=== PATIENT | male | born 1970 | race Hispanic/Latino ===

== ENCOUNTER 2024-11-08 17:26 | Emergency (ER) | payer BC, SELFPAY ==
[2024-11-08 17:28] VITALS: BP 149/63; PULSE 62; RESP 18; TEMP 35.9; O2SAT 99; BMI 29.8
--- NOTE | 2024-11-08 17:39 | EX.ED.UPPERE ---
HPI History of Present Illness Chief Complaint: Upper Extremity Injury Informant: patient Narrative Narrative: 54-year-old male presenting to the emergency room with left ring finger injury. Patient states that toolbox lid came down and struck his finger on the nail. He notes deformity to the nail itself and pain. He denies any other injuries. PFSH PFSH Home Medications ?Medication ?Instructions ?Recorded ?Last Taken ?Type cephalexin 500 mg capsule 500 mg PO Q6 #20 CAPSULES 11/08/24 Unknown Rx oxycodone-acetaminophen 5 mg-325 1 tab PO Q6H PRN pain 3 days #12 11/08/24 Unknown Rx mg tablet (Percocet) tabs Allergy/AdvReac Type Severity Reaction Status Date / Time No Known Allergies Allergy Verified 11/08/24 17:27 Social History Smoking Status: Never smoker ROS ROS ED Constitutional Constitutional ED: Denies chills or weight loss Eyes Eyes: Denies change in vision or diplopia ENT ENT ED: Denies ear pain, rhinorrhea or sore throat Cardiovascular Cardiovascular: Denies chest pain, orthopnea, palpitations or racing heartbeat Respiratory/Chest Respiratory/Chest: Denies cough, dyspnea or orthopnea Gastrointestinal Gastrointestinal: Denies abdominal pain, diarrhea, nausea or vomiting Genitourinary Genitourinary ED: Denies dysuria, hematuria or urinary frequency Musculoskeletal Musculoskeletal: Reports other Details: See history of present illness ; Denies arthralgias or myalgias Integumentary Denies abscess or rash Neurologic Neurologic: Denies headache(s) or weakness Psychiatric Psychiatric: Denies anxiety, depression, suicidal ideation or suicidal thoughts Endocrine Endocrinology: Denies polydipsia, polyphagia or polyuria Allergic/Immunologic Allergic/Immunologic ED: Denies mouth swelling, tongue swelling or urticaria EXAM Physical Exam Const Vital Signs: 11/08/24 17:28 Temperature 96.7 F L Temperature Source Temporal Pulse Rate 62 Respiratory Rate 18 Blood Pressure 149/63 H Blood Pressure Mean 91 Pulse Ox 99 Oxygen Delivery Method Room Air Positive well nourished and well developed General Appearance ED: well developed HEENT Reports normocephalic, head/scalp atraumatic and moist mucous membranes Eyes PERRL and EOMs intact bilaterally Neck no lymphadenopathy, supple and no JVD Resp normal respiratory effort and clear to auscultation bilaterally Cardio regular rate, regular rhythm and no murmurs GI normal to inspection, nondistended, normoactive bowel sounds and non-tender Palpation: soft Back/Spine no CVA tenderness and normal ROM Extremity Extremity Narrative: Left ring finger. There is a proximal third injury to the nail where the distal and is flattened forming more of a [place] deformity of the nail itself. The volar's fat pad shows ecchymosis extending onto the distal tip. There is some subungual hematoma noted up about 40%. There are some's mild swelling and erythema just proximal to the nail. Sensation preserved. General Extremety ED: Negative for edema General Extremity: Negative for edema Neuro oriented x3 and CN's II-XII intact bilaterally Sensorium / Orientation: alert Motor Exam: strength 5/5 throughout Psych mental status grossly normal Mood & Affect: Negative for depressed or tearful Skin no rashes or lesions noted and no wounds MDM MDM MDM Narrative Medical decision making narrative: Differential diagnosis includes but not limited to tuft fracture and nailbed injury subungual hematoma neurovascular injury tendon injury My independent interpretation of the plain films of the left index finger there is a comminuted displaced distal phalanx fracture. Patient underwent digital block using the single volar approach after cleansing the skin 1% lidocaine instilled. After adequate anesthesia was obtained the fracture was reduced by recreating the injury with traction. My independent interpretation of the plain films post reduction is improved alignment of fracture fragments. The subungual hematoma had grown to about 80% by the time the nerve block was performed. A trephination was performed which removed the subungual hematoma down to about 30%. The fingernail itself felt stable proximally. Therefore it was not removed. Patient was placed in aluminum foam splint. Patient will follow-up with plastic surgery. I will write for pain medication as well as some Keflex. Local wound care discussed with patient notes understanding. Discharge Plan Triage Chief Complaint: Upper Extremity Injury Other Complaint: Wound ED Provider: Robert Barksdale Dx/Rx/DC Orders Clinical Impression: Closed fracture of tuft of distal phalanx of finger, Subungual hematoma Instructions: ED Crush Injury, Hand, ED Fracture, Finger, Closed, ED Subungual Hematoma Prescriptions: New oxycodone-acetaminophen [Percocet] 5-325 mg tablet 1 tab PO Q6H PRN (Reason: pain) 3 Days Qty: 12 0RF cephalexin 500 mg capsule 500 mg PO Q6 Qty: 20 0RF Primary Care Provider: Care Physician,No Primary Referrals: Janak Valentine MD [Med Staff - Active Staff] - As soon as possible (for hand surgery) NOT,DEFINED [Non-Staff] - Print Language: Qatari Disposition Disposition: Home, Self Care Discharge Date/Time: 11/08/24 19:08
--- NOTE | 2024-11-08 17:40 | RAD_ITS ---
PROCEDURE: FINGER(S) MIN 2 VIEWS 11/08/2024 REASON FOR EXAM: INJURY TECHNIQUE: 3 view(s) of the left finger COMPARISON: None FINDINGS: Moderately comminuted fracture distal aspect of the distal phalanx 4th finger. There is dorsal angulation of the distal fracture fragment. Small laceration with soft tissue swelling is noted. No radiopaque foreign body. RAD/Finger(s) Min 2 Views IMPRESSION: See above Reading Location: [facility]
[2024-11-08] MEDS: Cephalexin 250 MG Capsule 500 MG PO (17:56)
[2024-11-08] MEDS: Lidocaine 1% (20 ml mdv) 20 ML Vial INFILT (17:56)
--- NOTE | 2024-11-08 18:01 | ED.RN ---
left 4th finger. top view 2nd top view 4th left finger side view left 4th finger 2nd side view of the 4th left finger left fourth finger, finger tip
--- NOTE | 2024-11-08 18:45 | RAD_ITS ---
PROCEDURE: FINGER(S) MIN 2 VIEWS 11/08/2024 REASON FOR EXAM: REDUCTION TECHNIQUE: 3 view(s) of the left middle finger COMPARISON: 11/08/2024 FINDINGS: Interval reduction previously noted fracture of the distal phalanx middle finger. Alignment is anatomic. Small osseous fragment along the volar aspect of the distal phalanx. Moderate soft tissue swelling. RAD/Finger(s) Min 2 Views IMPRESSION: See above Reading Location: [facility]
[2024-11-08 19:00] VITALS: BP 136/72; PULSE 86; RESP 16; TEMP 36.6; O2SAT 99
== END 2024-11-08 19:08 | disposition home or self-care (01) ==
PROVIDERS: Emergency Provider Emergency Medicine; Visit Provider Emergency Medicine
DX: S62.635A Displaced fracture of distal phalanx of left ring finger, initial encounter for closed fracture (principal); W23.0XXA Caught, crushed, jammed, or pinched between moving objects, initial encounter
CPT/HCPCS: 26755; 11740; 11750; 11760; 73140; 99284